=== PATIENT | female | born 1980 | race Hispanic/Latino ===

== ENCOUNTER 2025-09-07 20:13 | Emergency (ER) | payer SELFPAY ==
[2025-09-07] VITALS (10 sets, daily range): BP systolic 139–182; BP diastolic 72–99; PULSE 85–103; RESP 15–25; TEMP 36.5; O2SAT 94–100; BMI 53.2
--- NOTE | 2025-09-07 20:30 | EKG_ITS ---
[facility]
--- NOTE | 2025-09-07 20:35 | DI.RAD.S_ITS ---
PROCEDURE: XR CHEST 1V
[2025-09-07 20:45] LABS: Add Manual Diff / Slide Review NO; Hematocrit 35.4 % (36-46); Hemoglobin 12.0 g/dL (12.0-16.0); Lymphocytes Absolute Auto 3600 /uL (1100-4500); Mean Corpuscular HGB Conc 33.8 % (30-36); Mean Corpuscular Hemoglobin 28.8 PG (26-34); Mean Corpuscular Volume 85.2 fL (80-100); Platelet Count 294 X10^3/uL (150-400)
[2025-09-07 20:46] LABS: INR 1.0 (0.9-1.3); Prothrombin Time 11.5 SECONDS (9.4-12.5)
[2025-09-07 20:49] LABS: PTT Partial Thromboplastin Tim 31 SECONDS (25.1-36.5)
[2025-09-07 20:51] LABS: Alanine Aminotransferase 44 IU/L (<35); Albumin 4.2 g/dL (3.5-5.0); Albumin Globulin Ratio 1.2 (1.0-2.8); Alkaline Phosphatase 123 U/L (38-126); Blood Urea Nitrogen 11 mg/dL (7-17); Calcium 8.8 mg/dL (8.4-10.2); Carbon Dioxide 26 mmol/L (22-32); Chloride 105 mmol/L (98-107); Creatine Kinase 145 U/L (30-135); Estimated Glomerular Filt Rate > 60 mL/min (>60); Globulin 3.6 g/dL (1.7-4.1); Glucose 124 mg/dL (70-99); HEMOLYSIS 16 (0-50); Lipase 136 U/L (23-300); Magnesium 1.8 mg/dL (1.6-2.3); Potassium 3.7 mmol/L (3.4-5.1); Sodium 137 mmol/L (137-145); Total Protein 7.8 g/dL (6.3-8.2)
--- NOTE | 2025-09-07 20:51 | ED_ITS ---
HPI - Chest Pain
--- NOTE | 2025-09-07 20:51 | ED.CHESTPAIN ---
HPI - Chest Pain General Chief Complaint: Chest Pain Stated Complaint: Back/chest pain, poss insect bite Time Seen by Provider: 09/07/25 20:43 Source: patient Mode of arrival: Ambulatory Limitations: no limitations History of Present Illness HPI narrative: 45-year-old female complains of mecsy-oodsine-pten-left posterior thoracic pain, no injury or trauma, no midline back pain, some radiation to the right anterior chest. Denies previous coronary artery disease, no previous problems with clotting to legs or lung, no leg pain or swelling. No recent cough fevers shortness of breath. No abdominal discomfort, no nausea or vomiting or diarrhea. No black or red stools. She has tried ibuprofen earlier today that does not seem to be helping. Pain is somewhat worse with deep breathing or movements of her trunk and both extremities. Small red splotchy rash 2 spots noted earlier that seems to be a little less now, no hives or itching. Related Data Previous Rx's ?Medication ?Instructions ?Recorded methocarbamol 500 mg tablet 500 mg PO TID 7 days #21 tabs 09/08/25 omeprazole 20 mg capsule,delayed 20 mg PO DAILY upper abdominal 09/08/25 release pain 30 days #30 caps Allergies Allergy/AdvReac Type Severity Reaction Status Date / Time No Known Drug Allergies Allergy Verified 09/07/25 20:26 Patient History Social History Smoking Status: Never smoker Smoking Status: Never smoker Exam Narrative Exam Narrative: GENERAL: Well-developed patient, in mild distress. HEAD: Atraumatic. Normocephalic. EYES: Pupils equal round and reactive. Extraocular motions intact. No scleral icterus. No injection or drainage. ENT: Nose without bleeding, purulent drainage. Throat without erythema, tonsillar hypertrophy or exudate. Airway patent. NECK: Trachea midline. Non tender CARDIOVASCULAR: Regular rate and rhythm without murmurs, gallops, or rubs. RESPIRATORY: Clear to auscultation. Breath sounds equal bilaterally. No wheezes, rales, or rhonchi. GASTROINTESTINAL: Abdomen soft, non-tender, nondistended. EXTREMITIES: No edema or joint tenderness. BACK: Nontender without deformity or crepitance. No flank tenderness. NEURO: AOx3. Motor functions grossly nonfocal. SKIN: No rash or erythema of visible areas Initial Vital Signs Initial Vital Signs: Vital Signs Pulse Rate 103 H 09/07/25 20:22 Blood Pressure 182/99 H 09/07/25 20:22 Pulse Oximetry 97 09/07/25 20:22 Course Orders Ordered: ED Orders 09/07/25 21:08 CT angio chest PE protocol Stat 09/07/25 21:09 CT abdomen pelvis w con Stat 09/08/25 00:53 Troponin I Stat Discontinued Medications Hydromorphone HCl (Hydromorphone Hcl 0.5 Mg/0.5 Ml Syringe) 0.5 mg IV NOW ONE Stop: 09/07/25 21:01 Last Admin: 09/07/25 21:09 Dose: 0.5 mg Documented By: ARACELI Sodium Chloride (Normal Saline 0.9%) 1,000 mls @ 1,000 mls/hr IV BOLUS ONE Stop: 09/07/25 22:08 Last Infusion: 09/07/25 23:05 Dose: Infused Documented By: Admin: 09/07/25 21:42 Dose: 1,000 mls/hr Documented By: Ketorolac Tromethamine (Ketorolac 30 Mg/Ml Vial) 15 mg IV NOW ONE Stop: 09/08/25 00:46 Last Admin: 09/08/25 00:59 Dose: 15 mg Documented By: Methocarbamol (Methocarbamol 500 Mg Tablet) 500 mg PO NOW ONE Stop: 09/08/25 00:46 Last Admin: 09/08/25 00:59 Dose: 500 mg Documented By: Ondansetron HCl (Ondansetron 4 Mg/2 Ml Inj) 4 mg IV NOW ONE Stop: 09/07/25 21:01 Last Admin: 09/07/25 21:08 Dose: 4 mg Documented By: ARACELI Pantoprazole Sodium (Pantoprazole 40 Mg Vial) 40 mg IV NOW ONE Stop: 09/07/25 21:09 Last Admin: 09/07/25 21:42 Dose: 40 mg Documented By: Vital Signs Vital signs: Vital Signs - 8 hr 09/07/25 22:06 09/07/25 22:06 09/07/25 22:30 Pulse Rate 86 95 H Respiratory Rate 15 25 H Blood Pressure 139/74 Pulse Oximetry 97 94 Oxygen Delivery Method 09/07/25 22:30 09/07/25 23:00 09/07/25 23:00 Pulse Rate 87 Respiratory Rate 19 Blood Pressure 148/75 H 144/77 H Pulse Oximetry 96 Oxygen Delivery Method Room Air 09/07/25 23:30 09/07/25 23:30 09/08/25 00:00 Pulse Rate 88 84 Respiratory Rate 18 17 Blood Pressure 143/72 H Pulse Oximetry 94 97 Oxygen Delivery Method 09/08/25 00:00 09/08/25 00:30 09/08/25 00:30 Pulse Rate 82 Respiratory Rate 20 Blood Pressure 161/79 H 123/78 Pulse Oximetry 99 Oxygen Delivery Method 09/08/25 01:00 09/08/25 01:00 09/08/25 01:30 Pulse Rate 76 74 Respiratory Rate 18 14 Blood Pressure 117/65 Pulse Oximetry 98 96 Oxygen Delivery Method Room Air Room Air 09/08/25 01:30 Pulse Rate Respiratory Rate Blood Pressure 112/68 Pulse Oximetry Oxygen Delivery Method MDM - Chest Pain Lab Data Attestation: I reviewed the patient's lab results. Lab results narrative: White blood cell count 9800, hemoglobin 12.0, platelets adequate. Glucose 124. Normal renal function, serum CO2, electrolytes. Mild transaminitis, normal total bilirubin and alkaline phosphatase. Lipase 136 normal. 09/07/25 20:30 09/07/25 20:30 Labs: Lab Results 09/07/25 09/08/25 Range/Units 20:30 00:53 WBC 9.8 (4.5-11.0) X10^3/uL RBC 4.15 (4.0-5.2) X10^6/uL Hgb 12.0 (12.0-16.0) g/dL Hct 35.4 L (36-46) % MCV 85.2 (80-100) fL MCH 28.8 (26-34) PG MCHC 33.8 (30-36) % RDW 13.8 (11.6-14.8) % Plt Count 294 (150-400) X10^3/uL Neut % (Auto) 54.3 (50-75) % Lymph % (Auto) 37.0 (25-40) % Garza % (Auto) 6.4 (3-14) % Eos % (Auto) 2.0 (2-4) % Baso % (Auto) 0.3 (0-2) % Neut # (Auto) 5300 (5591-4457) /uL Lymph # (Auto) 3600 (8523-4711) /uL Garza # (Auto) 600 (0-900) /uL Eos # (Auto) 200 (0-450) /uL Baso # (Auto) 0 (0-100) /uL PT 11.5 (9.4-12.5) SECONDS INR 1.0 (0.9-1.3) APTT 31 (25.1-36.5) SECONDS D-Dimer 574 H (<500) ng/ml Sodium 137 (137-145) mmol/L Potassium 3.7 (3.4-5.1) mmol/L Chloride 105 (98-107) mmol/L Carbon Dioxide 26 (22-32) mmol/L BUN 11 (7-17) mg/dL Creatinine 0.50 L (0.52-1.04) mg/dL Estimated GFR > 60 (>60) mL/min BUN/Creatinine Ratio 22.0 (6-22) Glucose 124 H (70-99) mg/dL Calcium 8.8 (8.4-10.2) mg/dL Magnesium 1.8 (1.6-2.3) mg/dL Total Bilirubin 0.2 (0.2-1.3) mg/dL AST 45 H (14-36) IU/L ALT 44 H (<35) IU/L Alkaline Phosphatase 123 (38-126) U/L Total Creatine Kinase 145 H (30-135) U/L Troponin I < 0.012 < 0.012 (0.01-0.034) ng/mL NT-Pro-B Natriuret Pep < 20 (<125) pg/mL Total Protein 7.8 (6.3-8.2) g/dL Albumin 4.2 (3.5-5.0) g/dL Globulin 3.6 (1.7-4.1) g/dL Albumin/Globulin Ratio 1.2 (1.0-2.8) Lipase 136 (23-300) U/L Imaging Data Chest x-ray: Radiologist's Impression: [address] [address] XRay Report Signed Patient: Tayler Gibson MR#: [id number] : 1980 Acct:[id number] Age/Sex: 45 / F Date of Service: 09/07/25 Loc: ED Accession Number: [id number] Procedure: XR chest 1V Ordering Provider: Vazquez Su MD PROCEDURE: XR CHEST 1V INDICATIONS: Chest Pain TECHNIQUE: One view of the chest was acquired. COMPARISON: None. FINDINGS AND IMPRESSION: No dense airspace disease or pleural effusion on this single view study. Low lung volumes. Borderline cardiomegaly. Unremarkable osseous structures. Dictated by: Luke Wolfe M.D. on 09/07/2025 at 21:47 Approved by: Luke Wolfe M.D. on 09/07/2025 at 21:47 CT angiogram chest PE protocol: Radiologist's Impression: [place] [address] CT Scan Report Signed Patient: Tayler Gibson MR#: [id number] : 1980 Acct:[id number] Age/Sex: 45 / F Date of Service: 09/07/25 Loc: ED Accession Number: [id number] Procedure: CT angio chest PE protocol Ordering Provider: Vazquez Su MD PROCEDURE: CT ANGIO CHEST PE PROTOCOL INDICATIONS: back and chest pain, Ddimer+ TECHNIQUE: After the administration of intravenous contrast, 2 mm thick sections acquired from the pulmonary apices to the posterior costophrenic angles. 3-dimensional maximum intensity projection (MIP) coronal and sagittal reformats were then acquired through the thorax. For radiation dose reduction, the following was used: automated exposure control, adjustment of mA and/or kV according to patient size. COMPARISON: [facility], CT, CT ANGIO CHEST PE, 02/27/2021, 18:34. [facility], CR, XR CHEST 1V, 09/07/2025, 20:55. FINDINGS: Image quality: Motion degraded Lungs and pleura: Mosaic attenuation is seen throughout the lung parenchyma. No dense airspace disease. Similar 8 mm medial right midlung nodule. No pleural effusions. Mediastinum, heart, and esophagus: The distal arteries are not well assessed due to motion artifact. No central pulmonary embolism is seen. Borderline cardiomegaly. No enlarged lymph nodes by size criteria. Chest wall and thyroid: Unremarkable Possible right breast nodule measuring 1.2 cm. Upper abdomen: Separately dictated. Bones: There are degenerative osseous changes. No aggressive appearing osseous abnormality. IMPRESSION: No central pulmonary embolism. Mosaic attenuation in the lung parenchyma, nonspecific, with sometimes seen with chronic bronchiolitis. 8 mm medial right midlung nodule, likely benign given stability since 2020. No dense airspace disease or pleural effusions. Possible right breast 1.2 cm nodule. Mammogram and possible ultrasound recommended if not recently obtained Motion degraded exam Dictated by: Luke Wolfe M.D. on 09/07/2025 at 23:23 Approved by: Luke Wolfe M.D. on 09/07/2025 at 23:28 CT scan - abdomen/pelvis: Radiologist's Impression: [place] [address] CT Scan Report Signed Patient: Tayler Gibson MR#: [id number] : 1980 Acct:[id number] Age/Sex: 45 / F Date of Service: 09/07/25 Loc: ED Accession Number: [id number] Procedure: CT abdomen pelvis w con Ordering Provider: Vazquez Su MD PROCEDURE: CT ABDOMEN PELVIS W CON INDICATIONS: chest back pain TECHNIQUE: After the administration of intravenous contrast, axial sections acquired from the lung bases to the pubic symphysis. Coronal and sagittal reformats were performed. For radiation dose reduction, the following was used: automated exposure control, adjustment of mA and/or kV according to patient size. COMPARISON: None. FINDINGS: Image quality: Diagnostic Lower chest: Separately dictated Liver: Liver measures 20.4 cm Gallbladder and biliary system: Unremarkable, nondilated Pancreas: No ductal dilation Small calcification at the tail, possibly from prior inflammation Spleen: Borderline splenomegaly at 13.6 cm Adrenals: No discrete nodules Kidneys: No solid renal mass or hydronephrosis. Vessels and lymph nodes: Main portal vein appears patent. No abdominal aneurysm. Circumaortic left renal vein. No enlarged lymph nodes by size criteria. Bowel and peritoneum: No bowel obstruction. Colonic diverticula. Nondilated appendix Body wall: Unremarkable Pelvis: Bladder is unremarkable. Reproductive organs are unremarkable on limited CT evaluation. Bones: Degenerative spine changes. No aggressive appearing osseous abnormality focal osteophytes and disc complex suspected at L2-L3, with thecal sac narrowing. [id number] neural foraminal and thecal sac narrowing suspected in the lower lumbar spine as well. IMPRESSION: No acute intra-abdominal or intrapelvic abnormality identified. Lumbar degenerative changes with suspected thecal sac stenosis most significant at L2-L3. Hepatosplenomegaly. Other findings above. Dictated by: Luke Wolfe M.D. on 09/07/2025 at 23:28 Approved by: Luke Wolfe M.D. on 09/07/2025 at 23:31 ECG Data Attestation: I personally reviewed and interpreted this ECG as follows: Interpretation: , normal sinus rhythm with rate of 92, no obvious ST segment elevation or depression changes. AZ 144, QRS 90, QTC 452 MDM Narrative Medical decision making narrative: 45-year-old female with left scapular pain, sharp, pleuritic, radiating to left anterior chest. Worse discomfort with movements. No discomfort on palpation trapezius or rhomboid musculature, no skin changes, no rash/vesicles. No injury or trauma. Afebrile, sirs screen negative. No history known PE. No leg pain or swelling. DDx consider musculoskeletal cause, pneumonia, pulmonary embolus, atypical ACS, NELSON, other subdiaphragmatic process, other. EKG sinus rhythm, no acute changes. CXR no acute changes, see radiology report. Lab data: White blood cell count 9800, hemoglobin 12.0, platelets adequate. Glucose 124. Normal renal function, serum CO2, electrolytes. Mild transaminitis, normal total bilirubin and alkaline phosphatase. Lipase 136 normal. Troponin negative/unmeasurable. D-dimer added, 574 mild elevation. CTA chest PE protocol. No pulmonary embolus. No pulmonary infiltrates. Chronic bronchiolitis like changes. Right mid lung pulmonary nodule 8 mm stable since 2020. Possible right breast 1.2 cm nodule. See radiology report. CT abdomen and pelvis. No acute changes. Lumbar DJD changes with thecal sac stenosis most prominent L2-L3. Enlarged spleen and liver. See radiology report Interval repeat troponin also negative/unmeasurable. IV Toradol, oral Robaxin, IV Protonix. Prescription for further Robaxin sent to pharmacy. Consider omeprazole. Further evaluation as an outpatient advised. Incidental findings of lung nodule and breast nodule noted, further workup as an outpatient. Patient given copy of her reports with discussion of abnormal findings and negative reassuring findings. Discharged home with family. Return precautions discussed. Discharge Plan Departure Patient Disposition: Home Clinical Impression: Chest pain, Back pain, Breast nodule, Lung nodule, Lumbar spinal stenosis, Osteoarthritis of lumbar spine Instructions: DI for Atypical Chest Pain Activity Restrictions/Additional Instructions: Chest and abdominal pain unclear cause. Worse with deep inspiration, no trauma. No history of blood clots. EKG and serial blood tests not suggestive of heart attack at this time. CT angiogram of the chest showed no blood clots to the lungs, no acute appearing lung process. Incidentally noted was a small right middle lobe nodule in the lung, which will need outpatient further follow up. Right breast nodule was also incidentally noted, we will need further follow up as an outpatient. CT scan abdomen and pelvis showed no acute changes, incidentally noted was enlargement of your liver and your spleen of unclear etiology, and degenerative arthritic changes to your low back at levels L2-L3. Further evaluation as an outpatient. Possible musculoskeletal cause. Take Tylenol and or Motrin as needed for pain control. Trial of muscle relaxant, 1st dose of oral Robaxin/methocarbamol given, further methocarbamol prescription sent to your pharmacy. Recheck with your regular doctor in the next couple of days. Return to this/nearest emergency department for any change worsening symptoms or any concerns prior. Consider reflux which can cause chest discomfort and also radiate to the back, trial of omeprazole antacid. Prescriptions: New methocarbamol 500 mg tablet 500 mg PO TID 7 Days Qty: 21 0RF omeprazole 20 mg capsule,delayed release(DR/EC) 20 mg PO DAILY 30 Days Qty: 30 0RF Stand Alone Forms: Patient Portal/API
[2025-09-07 21:02] LABS: NT-proBNP (BNP-Adult 18+) < 20 pg/mL (<125); Troponin I < 0.012 ng/mL (0.01-0.034)
[2025-09-07] MEDS: ONDANSETRON 4 MG/2 ML INJ IV (21:08)
--- NOTE | 2025-09-07 21:08 | DI.CT.S_ITS ---
PROCEDURE: CT ANGIO CHEST PE PROTOCOL
--- NOTE | 2025-09-07 21:09 | DI.CT.S_ITS ---
PROCEDURE: CT ABDOMEN PELVIS W CON
[2025-09-07] MEDS: PANTOPRAZOLE 40 MG VIAL IV (21:42)
[2025-09-07] MEDS: SODIUM CHLORIDE 0.9% 1,000 ML 1000 ML IV (21:42)
[2025-09-08] VITALS: BP 161/79; PULSE 84; RESP 17; O2SAT 97
[2025-09-08 00:30] VITALS: BP 123/78; PULSE 82; RESP 20; O2SAT 99
[2025-09-08] MEDS: KETOROLAC 30 MG/ML VIAL 15 MG IV (00:59)
[2025-09-08 01:00] VITALS: BP 117/65; PULSE 76; RESP 18; O2SAT 98
[2025-09-08 01:23] LABS: Troponin I < 0.012 ng/mL (0.01-0.034)
[2025-09-08 01:30] VITALS: BP 112/68; PULSE 74; RESP 14; O2SAT 96
== END 2025-09-08 01:45 | disposition home or self-care (01) ==
PROVIDERS: Emergency Provider Emergency Medicine
DX: R07.9 Chest pain, unspecified (principal); M54.6 Pain in thoracic spine; M47.816 Spondylosis without myelopathy or radiculopathy, lumbar region; M48.061 Spinal stenosis, lumbar region without neurogenic claudication; R91.1 Solitary pulmonary nodule; N63.0 Unspecified lump in unspecified breast
CPT/HCPCS: 36415; 71045; 71275; 74177; 80053; 82550; 83690; 83735; 83880; 84484; 85025; 85379; 85610; 85730; 93005; 96361; 96374; 96375; 99284; J1171; J1885; J2405; J2470; J7030; Q9967